=== PATIENT | female | born 1980 | race Caucasian/White ===

== ENCOUNTER → 2018-02-23 | Outpatient (CLI) | payer MEDICAID ==
[~2018-02-23] MED LIST: DIPH25CA39; HYDR50CA PO; LAMO50TA2 PO; LITH300T3 PO; [UNRECOGNIZED DRUG - CODE] PO
== END | disposition home or self-care (01) ==
LOC: Rad HDHVI 15:49
PROVIDERS: ATTEND Internal Medicine Cardiovascular Disease
DX: I20.0 Unstable angina (principal); R00.2 Palpitations
CPT/HCPCS: 93306

== ENCOUNTER → 2018-03-16 | Outpatient (CLI) | payer MEDICAID ==
[~2018-03-16] VITALS: Ht 160 cm; Wt 83.5 kg
== END | disposition home or self-care (01) ==
LOC: Rad HDHVI 14:29
PROVIDERS: ATTEND Internal Medicine Cardiovascular Disease
DX: I20.0 Unstable angina (principal); E01.0 Iodine-deficiency related diffuse (endemic) goiter; R00.2 Palpitations
CPT/HCPCS: 78452; 93017; 96374; A9500